=== PATIENT | male | born 1950 | race Caucasian/White ===

== ENCOUNTER 2023-10-06 09:53 | Outpatient (CLI) | payer OTHER ==
[2023-10-06 10:25] LABS: BILIRUBIN,URINE NEGATIVE (Neg); CLARITY,URINE CLEAR (Clear); COLOR,URINE YELLOW (Yellow); GLUCOSE, URINE NEGATIVE (Neg); KETONES,URINE NEGATIVE (Neg); LEUKOCYTE ESTERASE ,URINE NEGATIVE (Neg); NITRITES, URINE NEGATIVE (Neg); OCCULT BLOOD,URINE NEGATIVE (Neg); PH,URINE 8.5 (4.8-8.0); PROTEIN,URINE 30 mg/dl (Neg); UROBILINOGEN,URINE 0.2 E.U/dL (0.2-1.0)
[2023-10-06 10:27] LABS: UA COLLECTION TYPE CLN CATCH MIDSTREAM
[2023-10-06 10:34] LABS: SQUAMOUS EPITHELIAL CELL,UR FEW /LPF (FEW)
[2023-10-06 10:35] LABS: BACTERIA,URINE FEW /HPF (Neg); WBC,URINE 0-4 /HPF (0-4)
[2023-10-06 10:38] LABS: ALANINE AMINOTRANSFERASE 101 U/L (12-78); ALBUMIN/GLOBULIN RATIO 0.7 (1.1-1.5); ALKALINE PHOSPHATASE 159 IU/L (46-116); ANION GAP 9 (8-16); ASPARTATE AMINO TRANSFERASE 124 U/L (10-37); BLOOD UREA NITROGEN 11 MG/DL (7-18); BUN/CREATININE RATIO 8.9 (10.0-20.0); CALCIUM 9.2 MG/DL (8.5-10.1); CHLORIDE 99 MMOL/L (99-107); CREATININE 1.24 MG/DL (0.60-1.10); GLUCOSE 115 MG/DL (70-104); POTASSIUM 4.2 MMOL/L (3.5-5.1); SODIUM 141 MMOL/L (135-145); TOTAL CARBON DIOXIDE 32.6 MMOL/L (24-32); TOTAL PROTEIN 7.5 G/DL (6.4-8.2); eGFR 57 ML/MIN
== END 2023-10-06 23:59 | disposition home or self-care (01) ==
LOC: LAB 09:53
PROVIDERS: ATTEND Chiropractor
DX: C64.9 Malignant neoplasm of unspecified kidney, except renal pelvis (principal)
CPT/HCPCS: 36415; 80053; 81001